=== PATIENT | female | born 1965 | race Hispanic/Latino ===

== ENCOUNTER 2023-12-01 20:45 | Emergency (ER) | payer SELFPAY ==
[2023-12-01 21:50] LABS: #Lymphocytes 0.7 thou/uL (1.20-3.40); #Monocytes 0.2 thou/uL (0.11-0.59); #Neutrophils 1.6 thou/uL (1.40-6.50); %Basophils 1.3 % (0.0-1.0); %Eosinophils 0.2 % (0.0-10.0); %Lymphocytes 28.2 % (21.0-51.0); %Neutrophils 63.3 % (42.0-75.0); Hematocrit 31.2 % (36.0-47.0); Hemoglobin 10.7 g/dL (12.0-16.0); Mean Corpuscular HGB CONC 34.3 g/dL (32.0-36.0); Mean Corpuscular Hemoglobin 29.7 pg (27.0-31.0); Mean Corpuscular Volume 86.7 fl (78.0-98.0); Mean Platelet Volume 6.4 fL (7.4-10.4); Platelet Count 21 10x3/uL (130-400); RBC Distribution Width 13.7 % (11.5-14.5); White Blood Cell (WBC) Count 2.6 10x3/uL (4.8-10.8)
[2023-12-01] MEDS ORDERED: Boostrix 0.5 ML (Tdap) VIAL (>/=7 yrs of age) ONE (22:00)
== END 2023-12-01 22:28 | disposition home or self-care (01) ==
LOC: NAV ERS 20:45
DX: D69.6 Thrombocytopenia, unspecified (principal); D64.9 Anemia, unspecified; Z23 Encounter for immunization
CPT/HCPCS: 36415; 85025; 90471; 90715

== ENCOUNTER 2023-12-07 18:27 | Emergency (ER) | payer SELFPAY | END 2023-12-07 18:56 | disposition home or self-care (01) | LOC: NAV ERS 18:27 | DX: S61.213A Laceration without foreign body of left middle finger without damage to nail, initial encounter (principal); D69.6 Thrombocytopenia, unspecified; E11.9 Type 2 diabetes mellitus without complications; Z79.84 Long term (current) use of oral hypoglycemic drugs; W26.8XXA Contact with other sharp object(s), not elsewhere classified, initial encounter | CPT/HCPCS: 99282 ==

== ENCOUNTER 2024-05-11 05:46 | Emergency (ER) | payer SELFPAY ==
[2024-05-19 10:35] LABS: %Eosinophils 0.4 % (0.0-10.0); %Lymphocytes 12.3 % (21.0-51.0); %Monocytes 4.3 % (0.0-10.0); %Neutrophils 82.4 % (42.0-75.0); Hemoglobin 9.8 g/dL (12.0-16.0); Mean Corpuscular HGB CONC 31.6 g/dL (32.0-36.0); Mean Corpuscular Hemoglobin 25.2 pg (27.0-31.0); Mean Corpuscular Volume 79.6 fl (78.0-98.0); Mean Platelet Volume 7.5 fL (7.4-10.4); Platelet Count 47 10x3/uL (130-400); RBC Distribution Width 14.6 % (11.5-14.5); White Blood Cell (WBC) Count 5.3 10x3/uL (4.8-10.8)
[2024-05-19 10:36] LABS: #Lymphocytes 0.7 thou/uL (1.20-3.40); #Monocytes 0.2 thou/uL (0.11-0.59); #Neutrophils 4.4 thou/uL (1.40-6.50); %Basophils 0.5 % (0.0-1.0); Anion Gap 12 mmol/L (10-20); Carbon Dioxide 22 mmol/L (22-29); Chloride 108 mmol/L (98-107); Potassium 3.7 mmol/L (3.5-5.1); Sodium 138 mmol/L (136-145)
[2024-05-19 10:37] LABS: ALT (SGPT) 21 U/L (8-55); AST (SGOT) 32 U/L (5-34); Albumin 3.4 g/dL (3.5-5.0); Alkaline Phosphatase 102 U/L (40-110); BUN (Urea Nitrogen) 16 mg/dL (9.8-20.1); Calc. Creatinine Clearance 0 mL/min (70-130); Calcium 8.6 mg/dL (7.6-10.4); Estimated GFR 102; Globulin 3.3 g/dL (2.4-3.5); Glucose 155 mg/dL (70-105); Protein, Total 6.7 g/dL (6.0-8.3)
[2024-05-19 10:38] LABS: Bilirubin Negative (Negative); Blood, Urine Moderate (Negative); Clarity Clear (Clear); Glucose, Urine (Dipstick) Negative (Negative); Ketone, Urine Negative (Negative); Leukocyte Negative (Negative); Nitrite Negative (Negative); Protein, Urine (Dipstick) Negative (Neg-Trace); WBC/HPF 0-3 HPF (0-3); pH, Urine 6.5 (5.0-9.0)
[2024-05-19 10:56] LABS: CAUTI Indications for Culture Fever or rigors
== END 2024-05-11 09:40 | disposition short-term general hospital (02) ==
LOC: NAV ERS 05:46
DX: A41.9 Sepsis, unspecified organism (principal); J18.9 Pneumonia, unspecified organism; D69.6 Thrombocytopenia, unspecified; R04.0 Epistaxis; M32.9 Systemic lupus erythematosus, unspecified; E11.9 Type 2 diabetes mellitus without complications; Z79.84 Long term (current) use of oral hypoglycemic drugs
CPT/HCPCS: 36415; 80053; 81001; 83605; 85025; 87040; 87400; 87426; 96374